=== PATIENT | female | born 1985 | race Two or more races ===

== ENCOUNTER 2018-10-18 00:25 | Emergency (ER) | payer MEDICAID ==
[~2018-10-18] VITALS: Ht 170.2 cm; Wt 84.7 kg
[2018-10-18] MEDS ORDERED: HYDROcodone/APAP 5/325 TABLET ONE (00:44)
[2018-10-18] MEDS ORDERED: ONDANSETRON ODT 4 MG ONE (00:44)
--- NOTE | 2018-10-18 00:45 | NUR ---
C/O BILATERAL LOWER QUADRANT PAIN X 3 DAYS, STATES SHE HAS HAD THIS IN THE PAST AND BELEIVES ITS HER OVARIAN CYSTS. DENIES FEVER, DIARRHEA, VOMITING. REPORTS NAUSEA. PT IS AWAKE/ALERT AND AMBULATORY INTO THE ED. VSS. AFEBRILE.
--- NOTE | 2018-10-18 00:46 | NUR ---
PT STATES SHE IS NOT ABLE TO URINATE AT THIS TIME. PT PROVIDED WATER AND POC DISCUSSED, PT UNDERSTANDS THE IMPORTACE OF PROVIDING URINE SAMPLE SOON.
--- NOTE | 2018-10-18 00:51 | NUR ---
LAB AT BEDSIDE TO DRAW BLOOD. US TECH TO TAKE PT AFTER LAB DRAW.
[2018-10-18 00:58] LABS: BASOPHILS # (AUTO) 0.01 x10^3/uL (0-0.1); BASOPHILS % (AUTO) 0 % (0-1); EOSINOPHILS # (AUTO) 0.12 x10^3/uL (0-0.4); EOSINOPHILS % (AUTO) 2 % (1-7); LYMPHOCYTES # (AUTO) 1.68 x10^3/uL (1-3.4); LYMPHOCYTES % (AUTO) 23 % (22-44); MD NO; MEAN CORPUSCULAR HEMOGLOBIN 32.6 pg (27.0-34.8); MEAN CORPUSCULAR HGB CONC 33.8 g/dL (32.4-35.8); MEAN CORPUSCULAR VOLUME 96.3 fL (80-100); MEAN PLATELET VOLUME 9.7 fL (7.4-10.4); MONOCYTES # (AUTO) 0.44 x10^3/uL (0.2-0.8); MONOCYTES % (AUTO) 6 % (2-9); NEUTROPHILS # (AUTO) 5.12 x10^3/uL (1.8-6.8); NEUTROPHILS % (AUTO) 70 % (42-75); PLATELET COUNT 192 x10^3/uL (130-400)
[2018-10-18] MEDS ORDERED: HYDROcodone/APAP 5/325 TABLET PO PRN (01:00)
[2018-10-18] MEDS ORDERED: ONDANSETRON ODT 4 MG PO ONE (01:00)
[2018-10-18 01:10] LABS: ANION GAP 6 mmol/L (5-15); CALCIUM 8.5 mg/dL (8.5-10.1); CHLORIDE 109 mmol/L (98-107); CREATININE 0.73 mg/dL (0.55-1.02)
--- NOTE | 2018-10-18 01:32 | NUR ---
PT STATES HER PAIN HAS IMPROVED FROM 10/19 TO 7
[2018-10-18 01:41] LABS: MICROSCOPIC NOT IND
[2018-10-18 01:46] LABS: CULTURE INDICATED? NO
[2018-10-18 02:17] VITALS: BP 105/62
== END 2018-10-18 02:21 | disposition home or self-care (01) ==
LOC: ED 02:18
DX: N83.292 Other ovarian cyst, left side (principal)
CPT/HCPCS: 36415; 76830; 80048; 81003; 82040; 84703; 85025; 99284; Q0162